=== PATIENT | male | born 1975 | race Caucasian/White ===

== ENCOUNTER → 2018-12-19 | Emergency (ER) | payer OTHER ==
[~2018-12-19] VITALS: Ht 175.3 cm; Wt 95.3 kg
[~2018-12-19] MED LIST: CITA20TA12 PO; LORA-407 PO; OLANZapine 5 MG (ZyPREXA) TAB PO ONE; OLANZapine 5 MG ODT (ZyPREXA ZYDIS) ONE; OLANZapine 5 MG ODT (ZyPREXA ZYDIS) PO ONE; ZOLP10TA PO
[2018-12-19 09:44] LABS: WHITE BLOOD COUNT 12.1 10^3/uL (4.3-11.0)
[2018-12-19 09:45] LABS: BASOPHILS % (AUTO) 0 % (0-10); EOSINOPHILS % (AUTO) 0 % (0-10); HEMATOCRIT 49 % (40-54); HEMOGLOBIN 16.8 G/DL (13.3-17.7); LYMPHOCYTES % (AUTO) 16 % (12-44); MEAN CORPUSCULAR HEMOGLOBIN 29 PG (25-34); MEAN CORPUSCULAR HGB CONC 34 G/DL (32-36); MEAN CORPUSCULAR VOLUME 85 FL (80-99); MEAN PLATELET VOLUME 9.1 FL (7.4-10.4); MONOCYTES % (AUTO) 8 % (0-12); NEUTROPHILS % (AUTO) 76 % (42-75); PLATELET COUNT 266 10^3/uL (130-400); RED CELL DISTRIBUTION WIDTH 12.6 % (10.0-14.5)
[2018-12-19 09:46] LABS: LYMPHOCYTES # (AUTO) 1.9 X 10^3 (1.0-4.0); MONOCYTES # (AUTO) 0.9 X 10^3 (0.0-1.0); NEUTROPHILS # (AUTO) 9.2 X 10^3 (1.8-7.8)
[2018-12-19 10:10] LABS: AMPHETAMINE SCREEN, URINE NEGATIVE (NEGATIVE); BARBITURATE SCREEN URINE NEGATIVE (NEGATIVE); BENZODIAZEPINES SCREEN URINE NEGATIVE (NEGATIVE); CANNABINOID SCREEN, URINE NEGATIVE (NEGATIVE); COCAINE SCREEN URINE NEGATIVE (NEGATIVE); METHADONE STAT NEGATIVE (NEGATIVE); METHAMPHETAMINE SCREEN URINE S NEGATIVE (NEGATIVE); OPIATE SCREEN URINE NEGATIVE (NEGATIVE); OXYCODONE STAT NEGATIVE (NEGATIVE); PROPOXYPHENE STAT NEGATIVE (NEGATIVE); TRICYCLIC ANTIDEPRESSANTS SCRE NEGATIVE (NEGATIVE)
[2018-12-19 10:11] LABS: ALANINE AMINOTRANSFERASE 20 U/L (0-55); ALBUMIN 4.4 GM/DL (3.2-4.5); ALKALINE PHOSPHATASE 59 U/L (40-136); BILIRUBIN,TOTAL 0.4 MG/DL (0.1-1.0); BUN/CREATININE RATIO 16; CARBON DIOXIDE 19 MMOL/L (21-32); CHLORIDE 102 MMOL/L (98-107); CREATININE SERUM 0.83 MG/DL (0.60-1.30); GFR ESTIMATED > 60; GLUCOSE 108 MG/DL (70-105); POTASSIUM 3.9 MMOL/L (3.6-5.0); SODIUM 139 MMOL/L (135-145); TOTAL PROTEIN 7.1 GM/DL (6.4-8.2)
[2018-12-19 10:27] VITALS: BP 118/72
--- NOTE | 2018-12-19 15:37 | ED General ---
General Chief Complaint: General Problems/Pain Stated Complaint: PSYCH EVAL Nursing Triage Note: PT WAS STARTED ON CELEXA 20 MG ONE WEEK AGO AND AMBIEN [address] MURPHY. HE HAS SINCE STARTED BEING FEARFUL AT NIGHT AND HIS SLEEPING PATTERNS HAVE WORSENED. Nursing Sepsis Screen: No Definite Risk Source of Information: Patient, Spouse Exam Limitations: No Limitations History of Present Illness Date Seen by Provider: Dec 19, 2018 Time Seen by Provider: 09:00 Initial Comments 42-year-old male with history of increased anxiety, insomnia, paranoia for the past 30 days. Symptoms most pronounced at night and frequently accompanied with night terrors. Patient was evaluated by his PCP last week for the same and was prescribed Celexa and Ambien. Patient reports increased nightmares, paranoia and suicidal thoughts since starting her new medications. He discontinued Ambien 3 days ago without improvement but continues to take Celexa. Patient states that last thoughts of killing himself this morning but does not have a plan and states he would never do it because he knows that it is wrong and he wants to live. Family members state they have removed all firearms from the home. Denies HI, hallucinations, but does report some paranoia during the nighttime. No command auditory hallucinations. Denies drugs, alcohol. No prior psychiatric hospitalizations. Denies history of anxiety, depression, bipolar and schizophrenia. No strong family history of mental illness. Denies recent stress or triggering event at home or during work. Patient is and is supported by his spouse and friends who are with him at bedside. Patient denies any recent medical illnesses, headaches, fever, neck pain, rash, chest pain, shortness breath, abdominal pain diarrhea or any other acute medical complaints.. Timing/Duration: Intermittent Severity: Moderate Modifying Factors: improves with Rest Associated Systoms: Denies Symptoms Allergies and Home Medications Allergies Coded Allergies: No Known Drug Allergies (Unverified , 12/19/18) Home Medications Lorazepam 2 Mg Tablet, 2 MG PO DAILY PRN PRN for ANXIETY Prescribed by: KOSTAS HOLMAN on 12/19/18 1014 Patient Home Medication List Home Medication List Reviewed: Yes Review of Systems Review of Systems Constitutional: no symptoms reported EENTM: no symptoms reported Respiratory: no symptoms reported Cardiovascular: no symptoms reported Gastrointestinal: no symptoms reported Genitourinary: no symptoms reported Musculoskeletal: no symptoms reported Skin: no symptoms reported Psychiatric/Neurological: Anxiety, Emotional Problems; Denies Numbness, Denies Paresthesia, Denies Pre-Existing Deficit, Denies Tingling; Tremors; Denies Weakness Hematologic/Lymphatic: No Symptoms Reported Immunological/Allergic: no symptoms reported Past Fmjkwas-Egibic-Rukbve Hx Patient Social History Alcohol Use: Denies Use Recreational Drug Use: No Smoking Status: Never a Smoker 2nd Hand Smoke Exposure: No Recent Foreign Travel: No Contact w/Someone Who Travel: No Recent Infectious Disease Expo: No Recent Hopitalizations: No Physical Abuse: No Sexual Abuse: No Mistreated: No Fear: No Seasonal Allergies Seasonal Allergies: No Past Medical History Surgeries: No Respiratory: No Cardiac: No Neurological: No Genitourinary: No Gastrointestinal: No Musculoskeletal: No Endocrine: No HEENT: No Cancer: No Psychosocial: No Integumentary: No Blood Disorders: No Physical Exam Vital Signs Vital Signs - First Documented 12/19/18 12/19/18 08:53 10:27 Temp 99.1 Pulse 95 Resp 18 B/P (MAP) 140/88 (105) Pulse Ox 99 O2 Delivery Room Air Capillary Refill : Less Than 3 Seconds Height, Weight, BMI Height: 5'9.00" Weight: 210lbs. oz. [id number]; BMI Method:Stated General Appearance: No Apparent Distress, Anxious Eyes: Bilateral Eye Normal Inspection, Bilateral Eye PERRL, Bilateral Eye EOMI HEENT: PERRL/EOMI, TMs Normal, Normal ENT Inspection Neck: Normal Inspection, Non Tender Respiratory: Lungs Clear, Normal Breath Sounds Cardiovascular: Regular Rate, Rhythm Neurologic/Psychiatric: Oriented x3; No No Motor/Sensory Deficits; Normal Mood/ Affect (anxious, pressured speech); No field handyman II-XII Norm as Tested; Depressed Affect; No Disoriented, No EOM Palsy, No Facial Droop, No Motor Weakness, No Sensory Deficit Skin: Normal Color, Warm/Dry Focused Exam Sepsis Stage: Ruled Out Progress/Results/Core Measures Suspected Sepsis Recent Fever Within 48 Hours: No Infection Criteria Present: None New/Unexplained Altered Menta: No Sepsis Screen: No Definite Risk SIRS Temperature:98.3 Pulse: 78 Respiratory Rate: 18 Laboratory Tests 12/19/18 09:22: White Blood Count 12.1H Blood Pressure 118 /72 Mean: 87 Laboratory Tests 12/19/18 09:22: Creatinine 0.83, Platelet Count 266, Total Bilirubin 0.4 Results/Orders Lab Results Laboratory Tests Test 12/19/18 09:22 12/19/18 09:25 12/19/18 09:40 Range/Units White Blood Count 12.1 H 4.3-11.0 10^3/uL Red Blood Count 5.81 4.35-5.85 10^6/uL Hemoglobin 16.8 13.3-17.7 G/DL Hematocrit 49 40-54 % Mean Corpuscular Volume 85 80-99 FL Mean Corpuscular Hemoglobin 29 25-34 PG Mean Corpuscular Hemoglobin Concent 34 32-36 G/DL Red Cell Distribution Width 12.6 10.0-14.5 % Platelet Count 266 130-400 10^3/uL Mean Platelet Volume 9.1 7.4-10.4 FL Neutrophils (%) (Auto) 76 H 42-75 % Lymphocytes (%) (Auto) 16 12-44 % Monocytes (%) (Auto) 8 0-12 % Eosinophils (%) (Auto) 0 0-10 % Basophils (%) (Auto) 0 0-10 % Neutrophils # (Auto) 9.2 H 1.8-7.8 X 10^3 Lymphocytes # (Auto) 1.9 1.0-4.0 X 10^3 Monocytes # (Auto) 0.9 0.0-1.0 X 10^3 Eosinophils # (Auto) 0.0 0.0-0.3 10^3/uL Basophils # (Auto) 0.0 0.0-0.1 10^3/uL Sodium Level 139 135-145 MMOL/L Potassium Level 3.9 3.6-5.0 MMOL/L Chloride Level 102 98-107 MMOL/L Carbon Dioxide Level 19 L 21-32 MMOL/L Anion Gap 18 H 5-14 MMOL/L Blood Urea Nitrogen 13 7-18 MG/DL Creatinine 0.83 0.60-1.30 MG/DL Estimat Glomerular Filtration Rate > 60 BUN/Creatinine Ratio 16 Glucose Level 108 H 70-105 MG/DL Calcium Level 9.0 8.5-10.1 MG/DL Corrected Calcium 8.7 8.5-10.1 MG/DL Total Bilirubin 0.4 0.1-1.0 MG/DL Aspartate Amino Transf (AST/SGOT) 11 5-34 U/L Alanine Aminotransferase (ALT/SGPT) 20 0-55 U/L Alkaline Phosphatase 59 40-136 U/L Total Protein 7.1 6.4-8.2 GM/DL Albumin 4.4 3.2-4.5 GM/DL Thyroid Stimulating Hormone (TSH) 0.87 0.35-4.94 UIU/ML Serum Alcohol < 10 <10 MG/DL Urine Opiates Screen NEGATIVE NEGATIVE Urine Oxycodone Screen NEGATIVE NEGATIVE Urine Methadone Screen NEGATIVE NEGATIVE Urine Propoxyphene Screen NEGATIVE NEGATIVE Urine Barbiturates Screen NEGATIVE NEGATIVE Ur Tricyclic Antidepressants Screen NEGATIVE NEGATIVE Urine Phencyclidine Screen NEGATIVE NEGATIVE Urine Amphetamines Screen NEGATIVE NEGATIVE Urine Methamphetamines Screen NEGATIVE NEGATIVE Urine Benzodiazepines Screen NEGATIVE NEGATIVE Urine Cocaine Screen NEGATIVE NEGATIVE Urine Cannabinoids Screen NEGATIVE NEGATIVE My Orders Orders - KOSTAS HOLMAN DO Cbc With Automated Diff (12/19/18 09:09) Comprehensive Metabolic Panel (12/19/18 09:09) Alcohol (12/19/18 09:09) Drug Screen Stat (Urine) (12/19/18 09:09) Vitamin B 12 (12/19/18 09:09) Ekg Tracing (12/19/18 09:09) Olanzapine Tablet (Zyprexa Tablet) (12/19/18 09:15) Olanzapine Orally Dissolve Tab (Zyprexa (12/19/18 09:43) Olanzapine Orally Dissolve Tab (Zyprexa (12/19/18 09:45) Thyroid Stimulating Hormone (12/19/18 09:22) Medications Given in ED Current Medications Medications Dose Ordered Sig/Juana Route Start Time Stop Time Status Last Admin Dose Admin Olanzapine 5 mg ONCE ONCE PO 12/19/18 09:15 12/19/18 09:20 DC 12/19/18 09:47 5 MG Vital Signs/I&O 12/19/18 12/19/18 08:53 10:27 Temp 99.1 98.3 Pulse 95 78 Resp 18 18 B/P (MAP) 140/88 (105) 118/72 (87) Pulse Ox 99 O2 Delivery Room Air Capillary Refill : Less Than 3 Seconds Blood Pressure Mean: 87 Progress Note : Time: 10:30 Progress Note Acute psychosis, not otherwise specified. No active HI or SI. Basic labs obtained. No apparent medical cause tripping to patient's symptoms. Zyprexa and given with significant improvement of symptoms. Patient requesting psychiatric evaluation. Call made with arrangements [facility] Family agreed to watch patient closely in the interim. Recommend discontinuing Celexa and given Ativan as needed this evening. Return precautions reviewed. Patient agreed to immediately call a mesh in the patient or family members become concerned for patient safety. ECG Initial ECG Rhythm: Normal Sinus Departure Impression Primary Impression: Encounter for medical screening examination Disposition: HOME, SELF-CARE Condition: Improved Departure-Patient Inst. Decision time for Depature: 10:45 Add. Discharge Instructions: Please discontinue Celexa and take Ativan prior to bedtime this evening. Follow up with [facility] tomorrow morning at 11 AM. Call 911 if you do not feel safe and return to the ED. All discharge instructions reviewed with patient and/or family. Voiced understanding. Scripts Lorazepam (Ativan) 2 Mg Tablet 2 MG PO DAILY PRN PRN for ANXIETY, #2 TAB Prov: KOSTAS HOLMAN DO 12/19/18 Work/School Note: Work Release Form Date Seen in the Emergency Department: Dec 19, 2018 Return to Work: Dec 20, 2018 Restrictions: No Restrictions KOSTAS HOLMAN DO Dec 19, 2018 15:37
== END | disposition home or self-care (01) ==
LOC: EDUNIT# 08:29 → ER FS 08:33
DX: F40.9 Phobic anxiety disorder, unspecified (principal); F41.9 Anxiety disorder, unspecified; G47.00 Insomnia, unspecified; F60.0 Paranoid personality disorder
CPT/HCPCS: 36415; 80053; 80306; 80320; 82607; 84443; 85025